=== PATIENT | female | born 1985 | race Caucasian/White ===

== ENCOUNTER → 2016-08-12 | Outpatient (CLI) | payer MEDICAID ==
[~2016-08-12] MED LIST: ALLEGRA 180MG180 MG PO; ALLEGRA D 12 HO1 TER PO; APAP/OXYCODONE1 TA5 PO; DEPO PROVER150 MG/ML IM; DEPO-PROVER150 MG/M2 IM; IRON TABLETS325 MG PO; KEFLEX 500MG.500 MG PO; LEVAQUIN500 MG PO; MOTRIN400 MG PO; NOMEDS; NOMEDS XX; PERCOCET 5/3251 EACH PO; PREDNISONE 20MG20 MG PO; PRENATAL VITAMI1 TA3 PO; TESSALON PERLE100 MG PO; TORADOL10 MG PO; TYLENOL W/CODEI1 TA2 PO; ZITHROMAX Z PA250 MG PO; ZOFRAN4 MG PO
[2016-08-12 14:18] LABS: LYMPH % 15.2 % (10-50.0)
[2016-08-12 14:23] LABS: HEMOGLOBIN 15.2 g/dL (12.2-16.2)
[2016-08-12 15:44] LABS: BUN 6 mg/dL (7-18)
[2016-08-12 15:45] LABS: GFR (ESTIMATED) 96 ML/MIN (59-)
== END ==
LOC: LAB 13:47
PROVIDERS: Emergency Medicine
DX: R53.1 Weakness (principal); M54.40 Lumbago with sciatica, unspecified side

== ENCOUNTER 2017-01-16 21:59 | Emergency (ER) | payer MEDICAID ==
[~2017-01-16] VITALS: Ht 162.6 cm; Wt 73.5 kg
--- NOTE | 2017-01-16 22:15 | Emergency Room Report ---
History of Present Illness Time Seen by [id number] Presenting Problem in Triage Pt arrived:Wheelchair Presenting Problem:left foot and ankle pain after a misstep from the height of one concrete stair. state she rolled her ankle. 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 N Clinical Suspician of Infection? N Mental Status: 1 - Regular (Normal Baseline) Sepsis Risk:Low Sepsis Risk Have you (or family members/close friends) recently traveled outside the [place]? N If Yes, where/when: Have you had exposure to infectious disease within the past month? N TB? Other? Specify: Source patient, RN notes reviewed, family, old records Exam Limitations no limitations Comment acute injury lt ankle/foot as she missed step tonight Cardiac Chest Pain Chest pain indicative of cardiac No Timing/Duration this evening Severity moderate ALLERGIES Coded Allergies: hydrocodone (Mild, HEADACHE AND NAUSEA 08/01/15) Home Medications Active Scripts Azithromycin (Zithromycin (Z-MARY) 250MG Tab) 250 MG PO DAILY #6 TAB Prov: 12/24/15 Prednisone (Prednisone 20MG) 20 MG PO BID #10 TAB Prov: 12/24/15 BENZONATATE (Benzonatate) 100 MG PO TID #15 CAP Prov: 12/24/15 Reported Medications No Home Medications (NO HOME MEDICATIONS) 1 EACH XX ONCE History Medical History General CAD? No Angina: No [place]: No Hypertension? No Hyperlipidemia? No CHF? No DVT? No PE? No COPD? No Asthma? Yes Anemia? No GERD? No Gastric ulcers? No GI Bleed? No Hernia? No Thyroid Problems? No Hypothyroidism? No CVA? No Seizures? No Diabetes? No Insulin Dependent: No Insulin Pump: No Home FSBS? No Renal Insuffiency? No End Stage Renal Disease? No UTI? No Stones? No BPH? No GB Disease: Yes Nephritic Syndrome? No Asplenia? No Hepatitis? No Sickle Cell Disease? No Arthritis? No Migraines? No Cataracts? No Glaucoma? No MRSA? No HIV? No TB? No Anxiety? No Depression? No Cancer? No More? No Additional hx: Uncomplicated childbirth Immunization Hx DT/Tetanus 1-4 Years Ago Flu [id number] Flu Season Pneumonia NEVER Surgical Hx Previous Surgery?Y Gallbladd-2008 [employer] Hx LMP On Depo Med-LMP Unknown Family History Family Hx Diabetes Yes CAD Yes Hypertension Yes Hyperlipidemia Yes Cancer Yes TB No Social History Smoking Hx Smoker: Former Smoker Tobacco: Yes Type Cigarettes Packs/day < 1 Pack Alcohol Alcohol: Yes Drugs none Review of Systems All Other Systems Reviewed and Negative Constitutional denies fever Eyes denies drainage ENT denies: ear discharge, epistaxis, throat pain. Respiratory denies cough, denies shortness of breath, denies wheezing Cardiovascular denies chest pain, denies palpitations, denies syncope Gastrointestinal denies abdominal pain, denies diarrhea, denies vomiting Genitourinary denies: dysuria, frequency, hesitancy, hematuria. Musculoskeletal see HPI, denies back pain, joint pain, joint swelling, denies neck pain Skin denies rash Psychiatric/Neurological denies headache, denies seizure Physical Exam Vital Signs Vital Signs Date Time Temp Pulse Resp B/P Pulse O2 O2 Flow FiO2 Ox Delivery Rate 01/16 2209 98.0 118 14 98 - WBC >12,000 or <4,000 or 10% bands? 2 or more SIRS Criteria Met? B/P: MAP: Creatinine >2.0? UA output<0.5ml/kg/hr for 2 hrs? Platelet count >100,000? Lactate >2.0mmol/1? INR >1.2 or PTT > than 60 sec? Evidence of Organ Dysfunction? Provider documented clinical suspician of infection? N Sepsis Criteria Count: 1 Sepsis Risk: Low Sepsis Risk General Appearance no apparent distress Eye Exam - bilateral eye PERRL, bilateral eye EOMI Ear, Nose, Throat normal ENT inspection Neck supple Respiratory Status No: respiratory distress. 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 No Results/Orders Orders Procedure Date/time Status STABILIZE JOINT 01/166 Active FOOT-LT-3 VIEWS 01/16 2215 Active ANKLE-LT-3 VIEWS 01/16 2215 Active XRAY/CT/US XRAY/CT/US XRAY ankle, foot XR interpretation by reviewed by me Xray Results no fracture seen Departure Departure Time of Disposition 2232 Disposition DC Home or Self Care(routine) Clinical Impression Primary Impression: Left ankle sprain Qualifiers: Encounter type: initial encounter Involved ligament of ankle: unspecified ligament Qualified Code: S93.402A - Sprain of unspecified ligament of left ankle, initial encounter Secondary Impressions: Sprain of foot, left Qualifiers: Encounter type: initial encounter Qualified Code: S93.602A - Unspecified sprain of left foot, initial encounter Condition STABLE Referrals Jovan JONES,Kervin Mccrary (PCP/Family) Patient Instructions DI for Ankle Sprain Additional Instructions ice and elevate and no wt bearing and nsaif and see podiatry and pcp for follow up Discharge Counseling Counseled pt/family regarding diagnosis, test results, medications/RX, follow up needs ED Critical Care Critical Care No at 2240
--- NOTE | 2017-01-16 22:15 | Emergency Room Report ---
History of Present Illness Time Seen by [id number] Presenting Problem in Triage Pt arrived:Wheelchair Presenting Problem:left foot and ankle pain after a misstep from the height of one concrete stair. state she rolled her ankle. 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 N Clinical Suspician of Infection? N Mental Status: 1 - Regular (Normal Baseline) Sepsis Risk:Low Sepsis Risk Have you (or family members/close friends) recently traveled outside the [place]? N If Yes, where/when: Have you had exposure to infectious disease within the past month? N TB? Other? Specify: Source patient, RN notes reviewed, family, old records Exam Limitations no limitations Comment acute injury lt ankle/foot as she missed step tonight Cardiac Chest Pain Chest pain indicative of cardiac No Timing/Duration this evening Severity moderate ALLERGIES Coded Allergies: hydrocodone (Mild, HEADACHE AND NAUSEA 08/01/15) Home Medications Active Scripts Azithromycin (Zithromycin (Z-MARY) 250MG Tab) 250 MG PO DAILY #6 TAB Prov: 12/24/15 Prednisone (Prednisone 20MG) 20 MG PO BID #10 TAB Prov: 12/24/15 BENZONATATE (Benzonatate) 100 MG PO TID #15 CAP Prov: 12/24/15 Reported Medications No Home Medications (NO HOME MEDICATIONS) 1 EACH XX ONCE History Medical History General CAD? No Angina: No [place]: No Hypertension? No Hyperlipidemia? No CHF? No DVT? No PE? No COPD? No Asthma? Yes Anemia? No GERD? No Gastric ulcers? No GI Bleed? No Hernia? No Thyroid Problems? No Hypothyroidism? No CVA? No Seizures? No Diabetes? No Insulin Dependent: No Insulin Pump: No Home FSBS? No Renal Insuffiency? No End Stage Renal Disease? No UTI? No Stones? No BPH? No GB Disease: Yes Nephritic Syndrome? No Asplenia? No Hepatitis? No Sickle Cell Disease? No Arthritis? No Migraines? No Cataracts? No Glaucoma? No MRSA? No HIV? No TB? No Anxiety? No Depression? No Cancer? No More? No Additional hx: Uncomplicated childbirth Immunization Hx DT/Tetanus 1-4 Years Ago Flu [id number] Flu Season Pneumonia NEVER Surgical Hx Previous Surgery?Y Gallbladd-2008 [employer] Hx LMP On Depo Med-LMP Unknown Family History Family Hx Diabetes Yes CAD Yes Hypertension Yes Hyperlipidemia Yes Cancer Yes TB No Social History Smoking Hx Smoker: Former Smoker Tobacco: Yes Type Cigarettes Packs/day < 1 Pack Alcohol Alcohol: Yes Drugs none Review of Systems All Other Systems Reviewed and Negative Constitutional denies fever Eyes denies drainage ENT denies: ear discharge, epistaxis, throat pain. Respiratory denies cough, denies shortness of breath, denies wheezing Cardiovascular denies chest pain, denies palpitations, denies syncope Gastrointestinal denies abdominal pain, denies diarrhea, denies vomiting Genitourinary denies: dysuria, frequency, hesitancy, hematuria. Musculoskeletal see HPI, denies back pain, joint pain, joint swelling, denies neck pain Skin denies rash Psychiatric/Neurological denies headache, denies seizure Physical Exam Vital Signs Vital Signs Date Time Temp Pulse Resp B/P Pulse O2 O2 Flow FiO2 Ox Delivery Rate 01/16 2209 98.0 118 14 98 - WBC >12,000 or <4,000 or 10% bands? 2 or more SIRS Criteria Met? B/P: MAP: Creatinine >2.0? UA output<0.5ml/kg/hr for 2 hrs? Platelet count >100,000? Lactate >2.0mmol/1? INR >1.2 or PTT > than 60 sec? Evidence of Organ Dysfunction? Provider documented clinical suspician of infection? N Sepsis Criteria Count: 1 Sepsis Risk: Low Sepsis Risk General Appearance no apparent distress Eye Exam - bilateral eye PERRL, bilateral eye EOMI Ear, Nose, Throat normal ENT inspection Neck supple Respiratory Status No: respiratory distress. 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 No Results/Orders Orders Procedure Date/time Status STABILIZE JOINT 01/166 Active FOOT-LT-3 VIEWS 01/16 2215 Active ANKLE-LT-3 VIEWS 01/16 2215 Active XRAY/CT/US XRAY/CT/US XRAY ankle, foot XR interpretation by reviewed by me Xray Results no fracture seen Departure Departure Time of Disposition 2232 Disposition DC Home or Self Care(routine) Clinical Impression Primary Impression: Left ankle sprain Qualifiers: Encounter type: initial encounter Involved ligament of ankle: unspecified ligament Qualified Code: S93.402A - Sprain of unspecified ligament of left ankle, initial encounter Secondary Impressions: Sprain of foot, left Qualifiers: Encounter type: initial encounter Qualified Code: S93.602A - Unspecified sprain of left foot, initial encounter Condition STABLE Referrals Jovan JONES,Kervin Mccrary (PCP/Family) Patient Instructions DI for Ankle Sprain Additional Instructions ice and elevate and no wt bearing and nsaif and see podiatry and pcp for follow up Discharge Counseling Counseled pt/family regarding diagnosis, test results, medications/RX, follow up needs ED Critical Care Critical Care No at 2240
[2017-01-16 22:50] VITALS: BP 129/73
--- NOTE | 2017-01-17 07:06 | RADIOLOGY REPORT PS360 ---
ANKLE-LT-3 VIEWS HISTORY: Posttraumatic pain fall ORDERING PHYSICIAN: Elza Aldana MD PATIENT AGE: 31 years COMPARISON: None FINDINGS: No fracture or dislocation. No lytic or blastic change. There is normal mineralization.. The joint spaces are well-preserved. No significant degenerative/arthritic changes. No erosive changes evident. IMPRESSION: Negative ankle, no acute finding
--- NOTE | 2017-01-17 07:06 | RADIOLOGY REPORT PS360 ---
FOOT-LT-3 VIEWS HISTORY: Posttraumatic pain fall ORDERING PHYSICIAN: Elza Aldana MD PATIENT AGE: 31 years COMPARISON: None FINDINGS: No fracture or dislocation. No lytic or blastic change. There is normal mineralization.. The joint spaces are well-preserved. No significant degenerative/arthritic changes. No erosive changes evident. IMPRESSION: Negative left foot, no acute finding
== END 2017-01-16 22:52 | disposition home or self-care (01) ==
LOC: ER 21:59
DX: S93.402A Sprain of unspecified ligament of left ankle, initial encounter (principal); S93.602A Unspecified sprain of left foot, initial encounter; F17.210 Nicotine dependence, cigarettes, uncomplicated; J45.909 Unspecified asthma, uncomplicated; W10.9XXA Fall (on) (from) unspecified stairs and steps, initial encounter; Y92.9 Unspecified place or not applicable; Z88.6 Allergy status to analgesic agent